=== PATIENT | female | born 1945 | race Caucasian/White ===

== ENCOUNTER 2017-07-11 01:03 | Inpatient (IN) | payer OTHER ==
[~2017-07-11] VITALS: Ht 165.1 cm; Wt 77.1 kg
[~2017-07-11 01:03] MED LIST: CRESTOR10 M1 PO; HYZAAR 100-12.1 EACH PO; NORVASC10 M1 PO; ZANTAC150 M1 PO
[2017-07-11] MEDS ORDERED: PRESERVISION A1 EAC1 PO (09:06)
[2017-07-11] MEDS ORDERED: ASPIRIN EC325 M2 PO (11:08)
[2017-07-11] MEDS ORDERED: COLACE100 M1 PO (11:08)
[2017-07-11] MEDS ORDERED: MIRALAX17 G1 PO (11:08)
[2017-07-11] MEDS ORDERED: DILAUDID2 M1 PO (11:08)
--- NOTE | 2017-07-11 11:13 | Patient Discharge Instructions ---
Discharge Instructions General Discharge Information You were seen/treated for: left knee pain You had these procedures: left total knee replacement Watch for these problems: temp greater than 101 redness and drainage from incision Other wound care: OK to shower keep incision clean and dry Diet Continue normal diet: Yes Activity Activity Self Limited: Yes Activity Limited to: Weight bear as tolerated Acute Coronary Syndrome Inclusion Criteria At DC or during hospital stay patient has or had the following: Discharge Core Measures Meds if any: Prescribed or Continued at Discharge Meds if any: NOT Prescribed or Continued at Discharge Congestive Heart Failure Inclusion Criteria At DC or during hospital stay patient has or had the following: Discharge Core Measures Meds if any: Prescribed or Continued at Discharge Meds if any: NOT Prescribed or Continued at Discharge Cerebrovascular accident Inclusion Criteria At DC or during hospital stay patient has or had the following: Discharge Core Measures Meds if any: Prescribed or Continued at Discharge Meds if any: NOT Prescribed or Continued at Discharge Venous thromboembolism Discharge Core Measures - Per Current guidelines, there needs to be overlap - treatment for the first 5 days of Warfarin therapy. - If discharged on Warfarin prior to 5 days of - overlap therapy, the patient will need to be - assessed for post discharge needs including - *Post discharge parental anticoagulation - *Warfarin and/or parental anticoagulation education - *Follow up date to check INR post discharge Meds if any: Prescribed or Continued at Discharge Note: Overlap Therapy is Warfarin and Anticoagulant Meds if any: NOT Prescribed or Continued at Discharge
--- NOTE | 2017-07-11 11:14 | Admission Core Measures ---
Acute Coronary Syndrome (CM) ACS Core Measures Acute Coronary Syndrome Diagnosis No Congestive Heart Failure (NEW) CHF Core Measures Congestive Heart Failure Diagnosis No Cerebrovascular Accident (NEW) CVA Core Measures CVA/TIA Diagnosis No Venous Thromboembolism VTE Core Sulema (View Protocol) VTE Risk Factors Surgery No Mechanical VTE Prophylaxis d/t N/A MechProphylax Ordered No VTE Pharm Prophylaxis d/t NA PharmProphylax ordered Problem List As ranked by this Provider includes Assessment & Plan 1. Status post total knee replacement, left HOME MEDS Home Med List Amlodipine Besylate (Norvasc) 10 MG TABLET 1 TAB PO DAILY HTN (Reported) Aspirin (Ecotrin*) 325 MG TABLET.DR 1 TAB PO BID ANTICOAGULATION Docusate Sodium (Colace) 100 MG CAPSULE 1 CAP PO BID STOOL SOFTENER Hydromorphone HCl (Dilaudid) 2 MG TABLET 1-2 TAB PO Q4-6 PRN PRN PAIN Losartan/Hydrochlorothiazide (Hyzaar 100-12.5 Tablet) 100 MG-12.5 MG TABLET 1 TAB PO DAILY HTN (Reported) Polyethylene Glycol 3350 (Miralax) 17 GRAM POWD.PACK 1 PAC PO DAILY CONSTIPATION Ranitidine HCl (Zantac) 150 MG TABLET 1 TAB PO BID REFLUX (Reported) Rosuvastatin Calcium (Crestor) 10 MG TABLET 1 TAB PO DAILY CHOLESTEROL ( Reported) Vit C/E/Zn/Coppr/Lutein/Zeaxan (Preservision Areds 2 Softgel) 250-200-40 CAPSULE 1 TAB PO TWICE DAILY EYE HEALTH (Reported)
--- NOTE | 2017-07-11 11:18 | Surgical Discharge Summary ---
Visit Information Visit Dates Admission Date: 07/11/17 History of Present Illness Chief Complaint: left knee pain Hospital Course Course Attending Physician: Ayaan Drew MD Primary Care Physician: Arun MOTLEY,Estefani Hospital Course: pt presented on 07/11/17 for an elective left total knee replacement, she tolerated the procedure well. postoperatively, she was voiding, her pain was managemd with oral medication, and she was ambulating with PT. Physical therapy cleared her for discharge to home with health services. Allergies: Coded Allergies: Sulfa (Sulfonamide Antibiotics) (HIVES 07/08/17) adhesive (IRRITATION WITH EXTENDED USE 07/08/17) Disposition Summary Disposition Principal Diagnosis: Primary left knee OA Additional Diagnosis: Sp Left TKA Discharge Disposition: SNF Discharge Instructions General Discharge Information Code Status: Full Code Patient's Diet: regular Patient's Activity: WBAT Follow-Up Instructions/Appts: keep scheduled appointment in 6 weeks Medications at Discharge Discharge Medications: Continue taking these medications: Amlodipine Besylate (Norvasc) 10 MG TABLET 1 Tablet ORAL DAILY Comments: Last Taken:07/14/17 Time: 10:00 AM Losartan/Hydrochlorothiazide (Hyzaar 100-12.5 Tablet) 100 MG-12.5 MG TABLET 1 Tablet ORAL DAILY Comments: Last Taken:07/14/17 Time: 10:00 AM Rosuvastatin Calcium (Crestor) 10 MG TABLET 1 Tablet ORAL DAILY Comments: Last Taken:07/13/17 Time: 5:00 PM Ranitidine HCl (Zantac) 150 MG TABLET 1 Tablet ORAL TWICE DAILY Comments: Last Taken:07/14/17 Time: 10:00 AM RECEIVED PEPCID WHILE IN HOSPITAL Vit C/E/Zn/Coppr/Lutein/Zeaxan (Preservision Areds 2 Softgel) 250-200-40 CAPSULE 1 Tablet ORAL TWICE DAILY Comments: DID NOT RECEIVE WHILE IN HOSPITAL Start taking the following new medications: Aspirin (Ecotrin*) 325 MG TABLET.DR 1 Tablet ORAL TWICE DAILY Qty = 60 No Refills Comments: Last Taken:07/14/17 Time: 10:00 AM Hydromorphone HCl (Dilaudid) 2 MG TABLET 1-2 Tablet ORAL EVERY 4-6 HOURS NEEDED as needed for PAIN Qty = 36 No Refills Comments: Last Taken:07/14/17 Time: 11:15 AM Docusate Sodium (Colace) 100 MG CAPSULE 1 Capsule ORAL TWICE DAILY Qty = 14 No Refills Instructions: STOP TAKING IF YOU DEVELOP LOOSE STOOL/DIARRHEA Comments: Last Taken:07/14/17 Time: 10:00 AM Polyethylene Glycol 3350 (Miralax) 17 GRAM POWD.PACK 1 Packet ORAL DAILY Qty = 7 No Refills Instructions: dissolve in water. STOP TAKING IF YOU DEVELOP LOOSE STOOL/DIARRHEA Comments: Last Taken:07/14/17 Time: 10:00 AM
--- NOTE | 2017-07-11 13:39 | Operative Report ---
Operative/Inv Procedure Report Surgery Date: 07/11/17 Name of Procedure: Left total knee replacement Pre-Operative Diagnosis: Primary left knee DJD Post-Operative Diagnosis: Same Estimated Blood Loss: 50ml to 100ml Surgeon/Adult Basic Education Manager: Viki MOTLEY,Ayaan Coates Anesthesia: block Operative/Procedure Note Note: Description of Procedure: The patient was taken to the operating room and positively identified. After induction of spinal anesthesia and administration of appropriate pre-operative antibiotics, the patient was positioned supine on the operating room table and all bony prominences were well padded. A well-padded pneumatic tourniquet was placed on the left upper thigh. After performing a surgical timeout, the left lower extremity was prepped and draped in the usual sterile fashion. After exsanguination with Esmarch the tourniquet was inflated to 250mm of mercury. A standard medial parapatellar approach was made to the knee. This was carried down through skin and subcutaneous tissue to the level of the fascia. Meticulous hemostasis was maintained with Bovie electrocautery. The extensor mechanism and patellar retinaculum were opened sharply and the patella was everted. The infrapatellar fat was resected in order to improve exposure. Osteophytes were trimmed from the patella and femoral condyles and the patella was re-everted and tucked laterally. A medial release was performed and the cruciate ligaments were resected. The tibia was then subluxed anteriorly. Utilizing the appropriate extra-medullary guide, the proximal tibia was trimmed perpendicular to the long axis of the tibial shaft. Attention was then turned to the femur. After opening the medullary canal, the distal femoral cut was made in 6 degrees of valgus utilizing the appropriate intra-medullary guide. The extension gap was checked and found to be appropriate. The femur was then sized and the remainder of the femoral cuts were made with a size #2 4-in-1 femoral cutting guide. The flexion gap was checked and found to be symmetric and appropriate. The knee was then trialed with a size #2 CR femoral component, a size #2 tibial component and a size 13 mm CS polyethylene insert. The patella was trimmed to accept an A 29 patella. This yielded excellent range of motion, stability and patellar tracking. All trial components were removed and the knee was copiously irrigated with sterile saline. All components were cemented into place with [employer] Simplex cement. All the components were of the [employer] Triathlon knee system of the above stated sizes. The knee was again irrigated after cementation. The extensor mechanism and patellar retinaculum were repaired using interrupted #1 vicryl suture. The skin was re-approximated with 2-0 vicryl and closed with adolfo. A sterile dressing was applied, the tourniquet was deflated, the patient was awakened and taken to the recovery room in satisfactory condition.
--- NOTE | 2017-07-11 16:49 | PN- Orthopedic ---
Subjective Subjective: POC S/P LEFT TKA NO MAJOR COMPLAINTS AT THIS TIME DENIES CP, SOB, NO N+V ONQ BLOCK PLACED Objective Vital Signs and I&Os VSS Physical Exam: CV: RRR LUNGS CLEAR ABD: SOFT, +BS EXT: DRSG DRY DISTAL CMS INTACT Assessment/Plan Assessment/Plan ORTHO STABLE PLAN ASA/ALPS FOR DVT PROPHYLAXIS OOB WIT PT IN AM TITRATE PAIN MEDS ADVANCE DIET TOLERATED [facility] Core Measures Venous Thromboembolism VTE Risk Factors Surgery No Mechanical VTE Prophylaxis d/t N/A MechProphylax Ordered No VTE Pharm Prophylaxis d/t NA PharmProphylax ordered
[2017-07-11 19:00] VITALS: BP 150/80
[2017-07-11 21:30] VITALS: BP 126/82
[2017-07-12] VITALS (7 sets, daily range): BP systolic 120–140; BP diastolic 56–80
--- NOTE | 2017-07-12 07:46 | PN- Orthopedic ---
Subjective Subjective: Patient comfortable, no voiced complaints, pain is controlled, no acute events overnight Objective Vital Signs and I&Os Vital Signs Date Time Temp Pulse Resp B/P B/P Pulse O2 O2 Flow FiO2 Mean Ox Delivery Rate 07/12 0708 97.6 68 20 134/76 91 Room Air 07/12 0206 97.6 75 20 140/74 92 Room Air 07/12 0034 97.6 94 20 138/76 92 Room Air 07/11 2130 98.9 93 20 126/82 91 Room Air 07/11 1900 98.0 88 18 150/80 92 Room Air Intake & Output 07/12 0800 07/12 0000 07/11 1600 07/11 0800 07/11 0000 07/10 1600 Intake Total 360 850 Output Total 450 450 Balance -90 400 Intake, IV 160 300 Intake, Oral 200 550 Output, Urine 450 450 Patient 170 lb Weight Weight Reported by Patient Measurement Method Physical Exam: Well-developed well-nourished no apparent distress. HEENT: Atraumatic, extraocular motion intact Neck: Supple, no lymphadenopathy Respiratory: No respiratory distress Extremities: No edema LEFT lower extremity dressing in place, Range of motion is 0-60. Compression wrap in place. ALPS in place Neurovascularly intact distally Bilateral calves are supple, nontender. Neuro: Alert and oriented x3 Psych: Mood affect normal, normal memory normal judgment. Skin: Warm and dry, no rash on exposed skin Assessment/Plan Assessment/Plan Postop day 1 status post left total knee arthroplasty Perioperative antibiotics. Pain medication as needed. Out of bed cont On-Q, DC tomorrow Physical therapy, weightbearing as tolerated DC IV fluids Regular diet Follow a.m. labs Aspirin for DVT prophylaxis ALPS for DVT prophylaxis Regular home meds Dressing change postop day 2 [facility] in 1-2 days Core Measures Venous Thromboembolism VTE Risk Factors Surgery No Mechanical VTE Prophylaxis d/t N/A MechProphylax Ordered No VTE Pharm Prophylaxis d/t NA PharmProphylax ordered
[2017-07-12 10:24] LABS: ABSOLUTE BASOPHIL COUNT 0 /CUMM (0.0-0.2); ABSOLUTE EOSINOPHIL COUNT 0 /CUMM (0.0-0.7); ABSOLUTE GRANULOCYTE CT 9.8 /CUMM (1.4-6.5); ABSOLUTE LYMPH COUNT 1.8 /CUMM (1.2-3.4); BASOPHIL % 0.1 % (0.0-2.0); EOSINOPHIL % 0 % (0-5); GRANULOCYTE % 77.8 % (42.2-75.2); HEMATOCRIT 34.8 % (37-47); MEAN CORPUSCULAR HGB 30.9 PG (27.0-31.0); MEAN CORPUSCULAR VOLUME 90.9 FL (81.0-99.0); MEAN PLATELET VOLUME 9.9 FL (7.4-10.4); PLATELET COUNT 93 /CUMM (130-400); RBC DISTRIBUTION WIDTH 12.8 % (11.5-14.5); RED BLOOD CELL CT 3.83 /CUMM (4.20-5.40); WHITE BLOOD CELL COUNT 12.6 /CUMM (4.8-10.8)
[2017-07-13] VITALS (7 sets, daily range): BP systolic 140–172; BP diastolic 58–80
--- NOTE | 2017-07-13 07:04 | PN- Orthopedic ---
Subjective Subjective: POD#2 S/P LEFT TKA NO MAJOR ISSUES OVERNIGHT DENIES CP, SOB, NO N+V WITH DIET HAS BEEN AMBULATING WITH PT TODAY Objective Vital Signs and I&Os Vital Signs Date Time Temp Pulse Resp B/P B/P Pulse O2 O2 Flow FiO2 Mean Ox Delivery Rate 07/13 0615 99.5 112 20 146/78 95 Room Air 07/13 0200 99.1 92 20 172/80 91 Room Air 07/12 2200 100.0 93 20 132/60 91 Room Air 07/12 1808 Room Air 07/12 1800 98.8 85 20 136/56 92 Room Air 07/12 1415 98.6 78 20 140/68 93 07/12 1001 98.0 77 20 120/80 93 07/12 0932 97.6 68 20 134/76 07/12 0708 97.6 68 20 134/76 91 Room Air Intake & Output 07/13 0800 07/13 0000 07/12 1600 07/12 0800 07/12 0000 07/11 1600 Intake Total 360 500 620 360 850 Output Total 400 200 450 450 Balance -40 500 420 -90 400 Intake, IV 120 160 300 Intake, Oral 360 500 500 200 550 Number 0 Bowel Movements Output, Urine 400 200 450 450 Patient 170 lb Weight Weight Reported by Patient Measurement Method Physical Exam: CV: RRR LUNGS: CLEAR ABD: SOFT, +BS EXT: DRSG CHANGED, WOUND C/D/I NO CALF TENDERNESS BILAT DSITAL CMS INTACT Assessment/Plan Assessment/Plan ORTHO STABLE PLAN CONT OOB WITH PT TITRATE PAIN MEDS ASA FOR DVT PROPHYLAXIS POSSIBLE TRANSFER TO SNF TODAY Core Measures Venous Thromboembolism VTE Risk Factors Surgery No Mechanical VTE Prophylaxis d/t N/A MechProphylax Ordered No VTE Pharm Prophylaxis d/t NA PharmProphylax ordered
[2017-07-13 09:00] LABS: ABSOLUTE BASOPHIL COUNT 0 /CUMM (0.0-0.2); ABSOLUTE EOSINOPHIL COUNT 0.1 /CUMM (0.0-0.7); ABSOLUTE GRANULOCYTE CT 9.2 /CUMM (1.4-6.5); ABSOLUTE LYMPH COUNT 2.6 /CUMM (1.2-3.4); ABSOLUTE MONOCYTE COUNT 1.2 /CUMM (0.10-0.60); BASOPHIL % 0.3 % (0.0-2.0); EOSINOPHIL % 0.4 % (0-5); GRANULOCYTE % 70.2 % (42.2-75.2); HEMATOCRIT 32.9 % (37-47); MEAN CORPUSCULAR HGB 30.9 PG (27.0-31.0); MEAN CORPUSCULAR HGB CONC 33.7 G/DL (33.0-37.0); MEAN CORPUSCULAR VOLUME 91.6 FL (81.0-99.0); MEAN PLATELET VOLUME 8.9 FL (7.4-10.4); PLATELET COUNT 84 /CUMM (130-400); RBC DISTRIBUTION WIDTH 13.6 % (11.5-14.5); WHITE BLOOD CELL COUNT 13.1 /CUMM (4.8-10.8)
[2017-07-14 02:13] VITALS: BP 176/84
[2017-07-14 04:00] VITALS: BP 150/72
[2017-07-14 06:48] VITALS: BP 150/80
--- NOTE | 2017-07-14 08:17 | PN- Orthopedic ---
See Addendum Subjective Subjective: PT SITTING ON SIDE OF BED. NO COMPLAINTS. TOLERATING PO WORKING WITH PT. AMBULATING, HOWEVER DESATURATED TO 80'S WHILE WALKING YESTERDAY. PT SAID SHE HAD LOW GRADE FEVER OF 100.1 LAST NIGHT DENIES CP/SOB, CURRENTLY ON 2L BY NASAL CANULA Objective Vital Signs and I&Os Vital Signs Date Time Temp Pulse Resp B/P B/P Pulse O2 O2 Flow FiO2 Mean Ox Delivery Rate 07/14 0648 98.1 66 18 150/80 95 Room Air 07/14 0400 150/72 07/14 0213 98.2 76 18 176/84 94 Nasal 2.0L Cannula 07/14 0000 Nasal 2.0L Cannula 07/13 2330 97.9 86 18 170/80 94 Nasal 2.0L Cannula 07/13 1804 98.0 90 20 140/58 94 Nasal 2.0L Cannula 07/13 1430 98.7 91 20 140/70 92 07/13 1139 100.1 104 20 140/80 90 07/13 1102 Room Air 07/13 1000 99.7 100 20 172/70 94 Room Air 07/13 0959 100 172/70 Intake & Output 07/14 1600 07/14 0800 07/14 0000 07/13 1600 07/13 0800 07/13 0000 Intake Total 450 600 360 500 Output Total 500 400 Balance 450 100 -40 500 Intake, Oral 450 600 360 500 Number 2 0 Bowel Movements Output, Urine 500 400 Physical Exam: GEN- NAD, ON 2 LITERS RESP- CLEAR CARDIO-RRR AND- SOFT NONTENDER EXT- DRESSING CLEAN AND DRY. DISTAL MOTOR AND SENSATION INTACT NO CALF TENDERNESS BILATERALLY Assessment/Plan Assessment/Plan Postop day 3 status post left total knee arthroplasty. low O2 sats (now on 2L O2 ) and low grade temp overnight WILL ORDER CXR THIS AM, ?atelectasis vs pneumonia Pain medication as needed. Out of bed Physical therapy, weightbearing as tolerated Regular diet Aspirin for DVT prophylaxis ALPS for DVT prophylaxis Regular home meds Core Measures Venous Thromboembolism VTE Risk Factors Surgery No Mechanical VTE Prophylaxis d/t N/A MechProphylax Ordered No VTE Pharm Prophylaxis d/t NA PharmProphylax ordered
[2017-07-14 10:15] VITALS: BP 168/70
[2017-07-14 11:29] LABS: ABSOLUTE BASOPHIL COUNT 0 /CUMM (0.0-0.2); ABSOLUTE EOSINOPHIL COUNT 0.2 /CUMM (0.0-0.7); ABSOLUTE GRANULOCYTE CT 6.6 /CUMM (1.4-6.5); ABSOLUTE LYMPH COUNT 2.2 /CUMM (1.2-3.4); ABSOLUTE MONOCYTE COUNT 0.9 /CUMM (0.10-0.60); BASOPHIL % 0.4 % (0.0-2.0); EOSINOPHIL % 1.7 % (0-5); GRANULOCYTE % 66.7 % (42.2-75.2); HEMATOCRIT 32.5 % (37-47); MEAN CORPUSCULAR HGB 30.1 PG (27.0-31.0); MEAN CORPUSCULAR HGB CONC 32.8 G/DL (33.0-37.0); MEAN CORPUSCULAR VOLUME 91.9 FL (81.0-99.0); MEAN PLATELET VOLUME 8.6 FL (7.4-10.4); PLATELET COUNT 82 /CUMM (130-400); RBC DISTRIBUTION WIDTH 13.7 % (11.5-14.5); RED BLOOD CELL CT 3.54 /CUMM (4.20-5.40); WHITE BLOOD CELL COUNT 9.9 /CUMM (4.8-10.8)
--- NOTE | 2017-07-14 12:28 | RADIOLOGY REPORT ---
EXAMINATION: XR CHEST CLINICAL INFORMATION: Desaturation. COMPARISON: None TECHNIQUE: 2 views of the chest were obtained. FINDINGS: Cardiac silhouette is borderline enlarged. The hilar contours are normal. No evidence of cephalization of pulmonary venous flow, interstitial edema, focal consolidation or pleural effusion. Atherosclerotic calcification of the aortic arch. The incidentally detected nonaggressive focus of calcification partially visualized in the proximal right humeral metadiaphysis is compatible with an enchondroma. IMPRESSION: 1. Borderline cardiomegaly. 2. No acute pulmonary disease.
[2017-07-14 14:09] VITALS: BP 130/80
== END 2017-07-14 16:15 | disposition home health service (06) | DRG 470 ==
LOC: SDA 01:03 → ENRESERV 16:53 → ENTRNSPT 18:12 → 2NA 18:48 → CMPTRNSPT 18:57 → ENPENDDIS 07-14 14:37 → ENTRNSPT 07-14 15:16 → EDTRNSPTSTS 07-14 15:49 → CMPTRNSPT 07-14 16:12 → 2NA 07-14 16:15
PROVIDERS: Nurse Practitioner; Physician Assistant Surgical
PROC: 0SRD0J9 Replacement of Left Knee Joint with Synthetic Substitute, Cemented, Open Approach (ICD-10-PCS; principal; 2017-07-11)
PROC: 3E0T3BZ Introduction of Anesthetic Agent into Peripheral Nerves and Plexi, Percutaneous Approach (ICD-10-PCS; 2017-07-11)
DX: M17.12 Unilateral primary osteoarthritis, left knee (principal); I27.20 Pulmonary hypertension, unspecified; K76.0 Fatty (change of) liver, not elsewhere classified; I10 Essential (primary) hypertension; K21.9 Gastro-esophageal reflux disease without esophagitis; E78.2 Mixed hyperlipidemia
CPT/HCPCS: 2NAP; 36415; 71046; 82436; 88305; 97110-GO; 97116-GO; 97161-GP; 97530-GO; C1713; J0131; J0690; J2550; J2795; J3490